=== PATIENT | male | born 1975 | race Caucasian/White ===

== ENCOUNTER 2023-09-10 08:27 | Outpatient (CLI) | payer MEDICAID ==
[~2023-09-10 08:27] MED LIST: COLC0.6T72 PO
[2023-09-10] MEDS ORDERED: iohexol 300mg/ml 100ml inj. ONE (09:03)
== END 2023-09-10 23:59 | disposition home or self-care (01) ==
LOC: RAD 08:27
PROVIDERS: ATTEND Family Medicine
DX: R31.9 Hematuria, unspecified (principal); I51.7 Cardiomegaly; K40.20 Bilateral inguinal hernia, without obstruction or gangrene, not specified as recurrent; M47.816 Spondylosis without myelopathy or radiculopathy, lumbar region
CPT/HCPCS: 74178; J3490; Q9967

== ENCOUNTER 2023-10-02 14:51 | Outpatient (CLI) | payer MEDICAID | END 2023-10-02 23:59 | disposition home or self-care (01) | LOC: RAD 14:51 | PROVIDERS: ATTEND Physician Assistant | DX: M25.532 Pain in left wrist (principal) | CPT/HCPCS: 73110; 73130 ==